=== PATIENT | male | born 1955 | race Caucasian/White ===

== ENCOUNTER → 2025-04-15 06:52 | Outpatient (REF) | payer MEDICARE, OTHER, SELFPAY | LOC: PAVMRI 06:52 | PROVIDERS: ATTENDING PHYSICIAN Physician Assistant Surgical; FAMILY PHYSICIAN Family Medicine | DX: S46.011A Strain of muscle(s) and tendon(s) of the rotator cuff of right shoulder, initial encounter (principal); Z98.890 Other specified postprocedural states | CPT/HCPCS: 73221 ==

== ENCOUNTER → 2025-04-27 10:08 | Outpatient (REF) | payer MEDICARE, SELFPAY | LOC: HWRAD 10:08 | PROVIDERS: ATTENDING PHYSICIAN Physician Assistant Surgical; FAMILY PHYSICIAN Family Medicine | DX: Z98.890 Other specified postprocedural states (principal); M75.121 Complete rotator cuff tear or rupture of right shoulder, not specified as traumatic | CPT/HCPCS: 73200 ==

== ENCOUNTER 2025-06-04 06:13 | Day surgery (SDC) | payer MEDICARE, SELFPAY ==
[2025-05-26 10:36] VITALS: BMI 22.4
[2025-05-26 12:53] LABS: Hematocrit 34.6 % (39.0-52.0); Hemoglobin 11.9 g/dL (13.0-18.0); Mean Corp Hgb Conc. 34.4 g/dL (33.0-37.0); Mean Corpuscular Volume 90.6 fL (80.0-94.0); Platelet Count 178 10^3/uL (130-400); Red Cell Dist. Width 13.1 % (11.5-14.5)
[2025-05-26 13:46] LABS: Blood Urea Nitrogen 18 mg/dl (9-20); Calcium 9.0 mg/dl (8.4-10.2); Carbon Dioxide 22 mmol/L (22-30); Chloride 108 mmol/L (98-107); Estimated Creatinine Clearance 63 ml/min; Glucose 128 mg/dl (70-99); Potassium 4.2 mmol/L (3.5-5.1); Sodium 134 mmol/L (135-145); eGFR > 60.00
[2025-06-04] VITALS (10 sets, daily range): BP systolic 101–127; BP diastolic 59–73; BMI 22.4
[2025-06-04] MEDS: CELEBREX 200 MG PO (09:57)
[2025-06-04] MEDS: TYLENOL 1000 MG PO (09:57)
[2025-06-04] MEDS: NORMOSOL-R/PLASMALYTE-A 1000 IV (09:58)
== END 2025-06-04 13:24 | disposition home or self-care (01) ==
LOC: SDS 06:13
PROVIDERS: ATTENDING PHYSICIAN Specialist; FAMILY PHYSICIAN Family Medicine
DX: M75.101 Unspecified rotator cuff tear or rupture of right shoulder, not specified as traumatic (principal)
CPT/HCPCS: 29828; 29823; C9781; C1889; 36415; 80048; 85027; 93005